=== PATIENT | female | born 1965 | race Caucasian/White ===

== ENCOUNTER → 2017-06-24 | Outpatient (CLI) | payer OTHER ==
--- NOTE | 2017-06-25 16:15 | BD ---
EXAMINATION TYPE: MG DEXA axial skeleton. DATE OF EXAM: 06/24/2017 COMPARISON: NONE CLINICAL HISTORY: 52-year-old female postmenopausal screening for osteoporosis Height: 5 FT 1 1/2 IN Weight: 238 FRAX RISK QUESTIONS: Alcohol (3 or more units per day): NO Family History (Parent hip fracture): NO Glucocorticoids (More than 3mos): NO (Ex: prednisone, prednisolone, methylprednisolone, dexamethasone, and hydrocortisone). History of Fracture in Adulthood: NO Secondary Osteoporosis: 1. Type 1 Diabetes: NO 2. Hyperthyroidism: NO 3. Menopause before 45: NO 4. Malnutrition: NO 5. Chronic liver disease: NO Rheumatoid Arthritis: NO Current Tobacco Use: NO RISK FACTORS HISTORY OF: Active: YES Postmenopausal woman: ABLASION AGE 46 MEDICATIONS: Additional Medications: NONE Additional History: CARPAL TUNNEL SURG BOTH WRISTS EXAM MEASUREMENTS: Bone mineral densitometry was performed using the [employer] inTouch System. Bone mineral density as measured about the Lumbar spine is: ----- L1-L4(G/cm2): 1.283 T Score Values are as follows: ----- L2: 0.8 ----- L3: 0.6 ----- L4: 1.2 ----- L1-L4: 0.9 BASELINE Bone mineral density about the R hip (g/cm2): 1.085 Bone mineral density about the L hip (g/cm2): 1.095 T Score values are as follows: -----R Neck: 0.3 -----L Neck: 0.4 -----R Total: 2.3 -----L Total: 2.4 BASELINE IMPRESSION: Normal (Values between +1 and -1 indicate normal bone mass). Consider repeating this study in 5 year s or sooner if there is some new clinical indication. NOTE: T-SCORE=SD OF THE YOUNG ADULT MEAN.
--- NOTE | 2017-06-26 09:58 | MM ---
Reason for exam: screening (asymptomatic). Last mammogram was performed 1 year and 3 months ago. History: Patient is postmenopausal. Family history of breast cancer in 2 paternal aunts. Took hormonal contraceptives for 3 years. Physical Findings: A clinical breast exam by your physician is recommended on an annual basis and results should be correlated with mammographic findings. MG Screening Mammo w CAD Bilateral CC and MLO view(s) were taken. Prior study comparison: March 13, 2016, bilateral MG screening mammo w CAD. December 01, 2014, bilateral MG screening mammo w CAD. There are scattered fibroglandular densities. No significant changes when compared with prior studies. ASSESSMENT: Negative, BI-RAD 1 RECOMMENDATION: Routine screening mammogram of both breasts in 1 year.
== END | disposition home or self-care (01) ==
LOC: RADMAMWWP 13:46
PROVIDERS: ATTEND Obstetrics & Gynecology
DX: Z12.31 Encounter for screening mammogram for malignant neoplasm of breast (principal); Z79.52 Long term (current) use of systemic steroids; Z13.820 Encounter for screening for osteoporosis
CPT/HCPCS: 77067; 77080

== ENCOUNTER → 2019-05-04 | Outpatient (CLI) | payer OTHER ==
--- NOTE | 2019-05-05 11:27 | MM ---
Reason for exam: screening (asymptomatic). Last mammogram was performed 1 year and 10 months ago. History: Patient is postmenopausal. Family history of breast cancer in 2 paternal aunts. Took hormonal contraceptives for 3 years. Physical Findings: A clinical breast exam by your physician is recommended on an annual basis and results should be correlated with mammographic findings. MG Screening Mammo w CAD Bilateral CC and MLO view(s) were taken. Prior study comparison: June 24, 2017, bilateral MG screening mammo w CAD. March 13, 2016, bilateral MG screening mammo w CAD. There are scattered fibroglandular densities. No suspicious abnormality. No significant changes when compared with prior studies. ASSESSMENT: Negative, BI-RAD 1 RECOMMENDATION: Routine screening mammogram of both breasts in 1 year.
== END | disposition home or self-care (01) ==
LOC: RADMAMWWP 11:02
PROVIDERS: ATTEND Obstetrics & Gynecology
DX: Z12.31 Encounter for screening mammogram for malignant neoplasm of breast (principal); N83.209 Unspecified ovarian cyst, unspecified side
CPT/HCPCS: 77067; 86304

== ENCOUNTER → 2020-08-29 | Outpatient (CLI) | payer OTHER ==
--- NOTE | 2020-08-29 15:03 | MM ---
Reason for exam: screening (asymptomatic). Last mammogram was performed 1 year and 4 months ago. History: Patient is postmenopausal. Family history of breast cancer in 2 paternal aunts. Took hormonal contraceptives for 3 years. Physical Findings: A clinical breast exam by your physician is recommended on an annual basis and results should be correlated with mammographic findings. MG Screening Mammo w CAD Bilateral CC and MLO view(s) were taken. Prior study comparison: May 04, 2019, bilateral MG screening mammo w CAD. June 24, 2017, bilateral MG screening mammo w CAD. There are scattered fibroglandular densities. There is chronic nodularity in the right breast. There is no discrete abnormality. ASSESSMENT: Benign, BI-RAD 2 RECOMMENDATION: Routine screening mammogram of both breasts in 1 year.
== END | disposition home or self-care (01) ==
LOC: RADMAMWWP 11:09
PROVIDERS: ATTEND Obstetrics & Gynecology
DX: Z12.31 Encounter for screening mammogram for malignant neoplasm of breast (principal); Z80.3 Family history of malignant neoplasm of breast; Z78.0 Asymptomatic menopausal state
CPT/HCPCS: 77067

== ENCOUNTER → 2021-09-17 | Outpatient (CLI) | payer OTHER ==
--- NOTE | 2021-09-18 00:52 | XR ---
EXAMINATION TYPE: XR knee limited LT DATE OF EXAM: 09/17/2021 COMPARISON: NONE INDICATION: Pressure behind knee, causing pain for 4 days. TECHNIQUE: 2 views of the left knee FINDINGS: Slightly sharp lateral tibial spine. Tiny osteophytosis of the lateral femoral condyle. Enthesophytos is at the patellar attachment of the patellar ligament. No other bony degenerative changes of the knee joint. No definite acute fracture line identified. Pos sible small knee joint effusion. IMPRESSION: Minimal degenerative changes as described above.
== END | disposition home or self-care (01) ==
LOC: RADXRYALE 10:29
PROVIDERS: ATTEND Internal Medicine
DX: M17.12 Unilateral primary osteoarthritis, left knee (principal); M71.22 Synovial cyst of popliteal space [Baker], left knee

== ENCOUNTER → 2021-12-04 | Outpatient (CLI) | payer OTHER ==
[2021-12-04 16:15] LABS: Basophils # (A) 0.04 X 10*3/uL (0.00-0.10); Basophils % (A) 0.5 %; Eosinophils # (A) 0.11 X 10*3/uL (0.04-0.35); Eosinophils % (A) 1.5 %; HCT 47.3 % (37.2-46.3); HGB 15.2 g/dL (12.0-15.0); Immature Grans, Automated 0.1 %; Lymphocytes # (A) 2.95 X 10*3/uL (0.90-5.00); Lymphocytes % (A) 39.1 %; MCH 29.7 pg (27.0-32.0); MCHC 32.1 g/dL (32.0-37.0); MCV 92.4 fL (80.0-97.0); Mean Platelet Volume 11.1 fL (9.5-12.2); Monocytes # (A) 0.58 X 10*3/uL (0.20-1.00); Monocytes % (A) 7.7 %; NRBC Per 100 WBC 0 /100 WBCS (0.0-0.0); Neutrophils # (A) 3.86 X 10*3/uL (1.80-7.70); Neutrophils % (A) 51.1 %; Platelet Count 314 X 10*3/uL (140-440); RBC 5.12 X 10*6/uL (4.10-5.20); WBC 7.55 X 10*3/uL (4.50-10.00)
[2021-12-04 16:16] LABS: Carbon Dioxide 26.6 mmol/L (20.0-27.5); Potassium 5.1 mmol/L (3.5-5.5)
== END | disposition home or self-care (01) ==
LOC: LABWHC1 09:56
PROVIDERS: ATTEND Orthopaedic Surgery
DX: Z01.812 Encounter for preprocedural laboratory examination (principal); M23.92 Unspecified internal derangement of left knee
CPT/HCPCS: 36415; 80051; 85025; 93005

== ENCOUNTER 2021-12-19 15:00 | Day surgery (SDC) | payer OTHER ==
--- NOTE | 2021-12-19 05:04 | HP ---
HISTORY AND PHYSICAL DATE OF SURGERY: 12/19/2021. Kait Meyer is a 56-year-old patient seen with progressive left knee pain. We discussed options regarding treatment. She elected to proceed with left knee arthroscopy. Consent was obtained. PAST MEDICAL HISTORY: Hypertension, ort-tmqqiae-svihipywm diabetes. PAST SURGICAL HISTORY: section, carpal tunnel surgery, cholecystectomy, foot surgery. DAILY MEDICATIONS: 1. Lisinopril. 2. Metformin. 3. Vitamins. 4. Ibuprofen. ALLERGIES: Sulfa. SOCIAL HISTORY: She denies tobacco use. PHYSICAL EVALUATION OF THE LEFT KNEE: Range of motion is 0 to 130. Mild effusion. Tenderness along the medial and lateral joint lines. Positive medial Shanae's. Positive lateral Shanae's. Ligaments are stable. Hip rotation is without pain. Distal neurovascular exam is intact. RADIOGRAPHS: Radiographs of the left knee revealed mild osteoarthritis. MRI of left knee revealed an abnormal signal in the medial meniscus, a Guerra cyst and effusion, osteoarthritic changes. IMPRESSION: 1. Internal derangement of left knee with medial meniscal tear. 2. Hypertension. 3. Ktj-ysgtulk-slbwsfmmy diabetes. PLAN: Left knee arthroscopy with partial medial meniscectomy and debridement. MMODL / IJN: [id number] /
[~2021-12-19 15:00] MED LIST: DEXAMETHASONE SOD PHOSPHATE 4 MG/ML 1 ML VIAL IV ONE; LACTATED RINGERS 1,000 ML IV SCH; LIDOCAINE 1% (10MG/ML) FOR IV START INTRADERMA PRN; METOCLOPRAMIDE 5 MG/ML 2 ML VIAL IVP PRN; ONDANSETRON 4 MG/2 ML VIAL IVP ONE
[2021-12-19 16:36] VITALS: RESP 16; TEMP 96.8
[2021-12-19 16:48] LABS: Glucose,Whole Blood 99 mg/dL (70-110)
[2021-12-19] MEDS ORDERED: fentaNYL (PF) 50 MCG/ML 2 ML AMP ONE (17:20)
[2021-12-19] MEDS ORDERED: LIDOCAINE 2% INJ 20 MG/ML (2 ML VIAL) ONE (17:20)
[2021-12-19] MEDS ORDERED: KETOROLAC 30 MG/ML 1 ML VIAL ONE (17:20)
[2021-12-19] MEDS ORDERED: MIDAZOLAM 2 MG/2 ML VIAL ONE (17:20)
[2021-12-19] MEDS ORDERED: PROPOFOL 10 MG/ML 20 ML VIAL IV ONE (17:20)
[2021-12-19] MEDS ORDERED: BUPIVACAINE (PF) 0.25% 30 ML VIAL SQ ONE ×2 (17:49)
[2021-12-19] MEDS: HYDROmorphone 0.5 MG/0.5 ML SYRINGE IVP PRN ×4 (18:07→18:45)
--- NOTE | 2021-12-19 18:07 | P.OP ---
Date of Procedure: 12/19/21 Preoperative Diagnosis: Internal derangement left knee Postoperative Diagnosis: 1. Tear medial and lateral meniscus left knee 2. Grade 4 chondromalacia medial femoral condyle left knee 3. Grade 4 chondromalacia lateral tibial plateau left knee 4. Reactive synovitis medial, lateral and suprapatellar compartments left knee Procedure(s) Performed: 1. Arthroscopic partial medial and lateral meniscectomy left knee 2. Arthroscopic microfracture medial femoral condyle left knee 3. Arthroscopic microfracture lateral tibial plateau left knee 4. Arthroscopic partial synovectomy medial, lateral and suprapatellar compartments left knee Anesthesia: FLORENCEA, local Surgeon: Darshan Ingram Estimated Blood Loss (ml): 10 Pathology: none sent Condition: stable Disposition: PACU Indications for Procedure: 56-year-old patient seen with progressive left knee pain. After treatment options were discussed, she elected to proceed with arthroscopy. Operative Findings: See description of procedure Description of Procedure: Patient was taken to the operative suite. Patient underwent a general anesthetic by the department of anesthesia. Patient was given preoperative antibiotics. The left lower extremity was placed in a well-padded arthroscopic leg little. The left leg was prepped and draped in the normal sterile orthopedic fashion. A lateral parapatellar and suprapatellar incision was made. Trochars were inserted. Arthroscopy was initiated. Suprapatellar pouch revealed diffuse thick reactive synovitis. The patellofemoral joint appeared to articulate congruently. There was grade 2 chondromalacia of the patella with some small osteochondral flap tears present centrally. The scope was guided into the medial gutter. No loose bodies or plica were identified. The scope was then guided into the medial compartment. A medial parapatellar incision was made. Trocar inserted followed by probe. There was a radial tear posterior horn medial meniscus. There were grade 3/4 chondral moist changes the medial femoral condyle with some fairly large osteochondral flap tears present. There was some thick reactive synovitis anteriorly. I performed a partial medial meniscectomy. I performed a chondroplasty of the medial femoral condyle getting down to stable osteochondral tissue. I performed a partial synovectomy decompressing the thick reactive synovitis. I did note an area of grade 4 chondromalacia medial femoral condyle with some exposed bone. I introduced a microfracture awl into the medial compartment. I performed a microfracture of the medial femoral condyle penetrating the bone with resultant bleeding at the microfracture site. The residual meniscus was probed and was found to be stable. The residual osteochondral surface was stable. There was good decompression of the synovitis. Scope and probe were then guided into the intercondylar notch. Cruciates were identified, probed and found to be stable. The scope and probe were then guided into lateral compartment. There was a radial tear involving the posterior horn lateral meniscus slightly into the midbody area. There were grade 3/4 chondromalacia changes of the tibial plateau with some significant osteochondral flap tears present. There was thick reactive synovitis anteriorly. I performed a partial lateral meniscectomy. I performed a chondroplasty of the lateral tibial plateau down to stable osteochondral tissue. I performed a partial synovectomy. After chondroplasty lateral tibial plateau and noted a 2 cm area of exposed bone a central area tibial plateau. I introduced a microfracture awl into lateral compartment. I performed a microfracture to the lateral tibial plateau exposed bone area penetrating the bone with resultant bleeding at the microfracture site. The residual meniscus was stable. The residual osteochondral surface was stable. There was good decompression synovitis. The scope was in guided back into the suprapatellar compartment. I introduced a motorized shaver into the super patellar compartment. I debrided some piecemeal fragments of meniscus I encountered. I performed a chondroplasty of the patella getting down to stable osteochondral tissue. The residual osteochondral surface of patella. Stable. I performed a partial synovectomy decompressing the reactive synovitis within the suprapatellar compartment. The shaver was removed. There appeared to be good decompression synovitis. I took one more look on the entire knee, no residual debris. Instruments were now removed from the joint. The joint was infiltrated with .25% Marcaine. Steri-Strips were applied to the portal sites. Sterile dressings were applied. The patient was placed into a LUCHO hose. No tourniquet was utilized. The patient was awakened, transferred to a bed and taken to recovery stable satisfactory condition.
[2021-12-19] MEDS ORDERED: LACTATED RINGERS 1,000 ML IV ONE (18:37)
[2021-12-19] MEDS ORDERED: MEPERIDINE 50 MG/ML SYRINGE IVP ONE (18:53)
[2021-12-19] MEDS ORDERED: HYDROcodone/APAP 5-325MG 1 EACH TAB PO ONE (19:30)
[2021-12-19] MEDS ORDERED: HYDROcodone/APAP 5-325MG 1 EACH TAB ONE (19:31)
[2021-12-19 19:35] VITALS: BP 95/63; PULSE 90
== END 2021-12-19 20:11 | disposition home or self-care (01) ==
LOC: OR 15:00
PROVIDERS: ATTEND Orthopaedic Surgery
DX: M23.201 Derangement of unspecified lateral meniscus due to old tear or injury, left knee (principal); M23.204 Derangement of unspecified medial meniscus due to old tear or injury, left knee; M94.262 Chondromalacia, left knee; M65.862 Other synovitis and tenosynovitis, left lower leg; I10 Essential (primary) hypertension; E11.9 Type 2 diabetes mellitus without complications; J44.9 Chronic obstructive pulmonary disease, unspecified; Z90.49 Acquired absence of other specified parts of digestive tract; Z98.891 History of uterine scar from previous surgery; Z98.890 Other specified postprocedural states; Z79.84 Long term (current) use of oral hypoglycemic drugs; Z79.1 Long term (current) use of non-steroidal anti-inflammatories (NSAID); Z79.899 Other long term (current) drug therapy; Z88.2 Allergy status to sulfonamides
CPT/HCPCS: 29880; 29879; J2250; J1100; J2175; J2405; J3010; J1885; J2704; J1170; J2001

== ENCOUNTER → 2022-12-10 | Outpatient (CLI) | payer OTHER ==
--- NOTE | 2022-12-10 19:15 | BD ---
EXAMINATION TYPE: Axial Bone Density DATE OF EXAM: 12/10/2022 CLINICAL HISTORY: 57 years old Female. ICD-10 CODE: N951 POST KLAUDIA SYMPT Height: 5 ft 2 in Weight: 244 FRAX RISK QUESTIONS: Alcohol (3 or more units per day): no Family History (Parent hip fracture): no Glucocorticoids (More than 3mos): no (Ex: prednisone, prednisolone, methylprednisolone, dexamethasone, and hydrocortisone). History of Fracture in Adulthood: no Secondary Osteoporosis: 1. Type 1 Diabetes: type 2 2. Hyperthyroidism: no 3. Menopause before 45: no 4. Malnutrition: no 5. Chronic liver disease: no Rheumatoid Arthritis: no Current Tobacco Use: no RISK FACTORS HISTORY OF: Surgery to Spine/Hip(right/left)/Wrist (right/left): no Family History of Osteoporosis: no Active: yes Diet low in dairy products/other sources of calcium: no Postmenopausal woman: yes Take estrogen and/or progesterone medications: no Lost more than 2 inches in height since high school: no Frequent falls: no Poor Health: good Hyperparathyroidism: no Adrenal Insufficiency: no MEDICATIONS: Additional Medications: metformin, lisinopril, vit d , Additional History: carpal tunnel vida 2003 EXAM MEASUREMENTS: Bone mineral densitometry was performed using the [employer] System. Bone mineral density as measured about the Lumbar spine is: ----- L1-L4(G/cm2): 1.181 T Score Values are as follows: ----- L1: -0.6 ----- L2: 0.2 ----- L3: -0.6 ----- L4: 0.6 ----- L1-L4: 0.0 Z Score Values are as follows: ----- L1: -0.8 ----- L2: 0.0 ----- L3: -0.8 ----- L4: 0.4 ----- L1-L4: -0.2 Bone mineral density has: decreased -8.0 % since study of: 2018 Bone mineral density about the R hip (g/cm2): 1.025 Bone mineral density about the L hip (g/cm2): 1.048 T Score values are as follows: -----R Neck: -0.1 -----L Neck: 0.1 -----R Total: 1.6 -----L Total: 1.5 Z Score values are as follows: -----R Neck: 0.2 -----L Neck: 0.4 -----R Total: 1.5 -----L Total: 1.4 Bone mineral density has: decreased -7.4 % since study of: 2018 FRAX%s: The graph provided illustrates a 4.7 % chance for a major osteoporotic fx and a 0.1 % chance for the hips probability for fx in 10 years time. IMPRESSION: Normal (Values between +1 and -1 indicate normal bone mass). Consider repeating this study in 5 year s or sooner if there is some new clinical indication. NOTE: T-SCORE=SD OF THE YOUNG ADULT MEAN.
--- NOTE | 2022-12-11 10:33 | MM ---
Reason for Exam: Screening (asymptomatic). Last mammogram was performed 1 year(s) and 1 month(s) ago. Patient History: Menarche at age 12. First Full-Term at age 19. Postmenopausal. Hormonal Contraceptives for 3 years until age 32. Paternal aunt had breast cancer, age 40. Paternal aunt had breast cancer, age 40. Maternal grandmother had ovarian cancer, age 70. Paternal grandmother had ovarian cancer at or over age 50. Risk Values: Daisha 5 year model risk: 1.0%. NCI Lifetime model risk: 6.4%. Prior Study Comparison: 05/04/2019 Bilateral Screening Mammogram, [facility]. 08/29/2020 Bilateral Screening Mammogram, [facility]. 11/14/2021 Bilateral MG screening mammo w CAD, [facility]. Tissue Density: There are scattered fibroglandular densities. Findings: Analyzed By CAD. There is no suspicious group of microcalcifications or new suspicious mass in either breast. Chronic nodularity right breast. Benign calcifications. Overall Assessment: Benign, BI-RAD 2 Management: Screening Mammogram of both breasts in 1 year. . Patient should continue monthly self-breast exams. A clinical breast exam by your physician is recommended on an annual basis. This exam should not preclude additional follow-up of suspicious palpable abnormalities. Note on Daisha scores and lifetime risk: 1. A Daisha score greater than 3% is considered moderate risk. If this is the case, consider specialist referral to assess eligibility for a risk reducing agent. 2. If overall lifetime risk for the development of breast cancer is 20% or higher, the patient may qualify for future screening with alternating mammogram and breast MRI. Electronically signed and approved by: Saud Joel M.D. Radiologis
== END | disposition home or self-care (01) ==
LOC: RADBDWWP 12:30
PROVIDERS: ATTEND Obstetrics & Gynecology
DX: Z12.31 Encounter for screening mammogram for malignant neoplasm of breast (principal); N83.209 Unspecified ovarian cyst, unspecified side; Z78.0 Asymptomatic menopausal state; Z80.3 Family history of malignant neoplasm of breast; Z80.41 Family history of malignant neoplasm of ovary
CPT/HCPCS: 77067; 77080; 86304

== ENCOUNTER → 2024-01-07 | Outpatient (CLI) | payer OTHER ==
--- NOTE | 2024-01-07 11:00 | MM ---
Reason for Exam: Screening (asymptomatic). Last mammogram was performed 1 year(s) and 1 month(s) ago. Patient History: Menarche at age 12. First Full-Term at age 19. Postmenopausal. Hormonal Contraceptives for 3 years until age 32. Paternal aunt had breast cancer, age 40. Paternal aunt had breast cancer, age 40. Maternal grandmother had ovarian cancer, age 70. Paternal grandmother had ovarian cancer at or over age 50. Risk Values: Daisha 5 year model risk: 1.0%. NCI Lifetime model risk: 6.3%. Prior Study Comparison: 03/13/2016 Bilateral Screening Mammogram, [facility]. 06/24/2017 Bilateral Screening Mammogram, [facility]. 05/04/2019 Bilateral Screening Mammogram, [facility]. 08/29/2020 Bilateral Screening Mammogram, [facility]. 11/14/2021 Bilateral MG screening mammo w CAD, [facility]. 12/10/2022 Bilateral MG screening mammo w CAD, [facility]. Tissue Density: There are scattered areas of fibroglandular density. Findings: Analyzed By CAD. There is no suspicious group of microcalcifications or new suspicious mass in either breast. Stable chronic nodularity right breast relative to multiple prior exams. Benign appearing calcifications. Overall Assessment: Benign, BI-RAD 2 Management: Screening Mammogram of both breasts in 1 year. . Patient should continue monthly self-breast exams. A clinical breast exam by your physician is recommended on an annual basis. This exam should not preclude additional follow-up of suspicious palpable abnormalities. Note on Daisha scores and lifetime risk: 1. A Daisha score greater than 3% is considered moderate risk. If this is the case, consider specialist referral to assess eligibility for a risk reducing agent. 2. If overall lifetime risk for the development of breast cancer is 20% or higher, the patient may qualify for future screening with alternating mammogram and breast MRI. [facility], , 01/07/2024 10:56 AM. Electronically signed and approved by: Saud Joel M.D. Radiologis
== END ==
LOC: RADMAMWWP 10:17
PROVIDERS: ATTEND Internal Medicine
CPT/HCPCS: 77067

== ENCOUNTER → 2024-01-14 | Outpatient (CLI) | payer OTHER ==
--- NOTE | 2024-01-14 15:50 | US ---
EXAMINATION TYPE: US pelvis complete transvag DATE OF EXAM: 01/14/2024 COMPARISON: NONE CLINICAL INDICATION: Female, 58 years old with history of R10.2 PELVIC PAIN; Hx ablation 15 + years a go, pain right side, hx 2 C sections. . TECHNIQUE: Transvaginal (TV) and Transabdominal (TA) . Transabdominal grayscale, color Doppler and spectral Doppler sonographic images of the pelvis were acquired. Transvaginal sonographic images wer e medically necessary to better assess the following anatomy: ovaries, endometrium FINDINGS: Date of LMP: 15+ years ago EXAM MEASUREMENTS: Uterus: 6.2 x 4.1 x 2.9 cm Endometrial Stripe: Unable to visualize Right Ovary: Not seen Left Ovary: Not seen 1. Uterus: Anteverted Very heterogeneous*. Limited. Hyperechoic area seen upper uterus= 0.2 x 0.4 x 0.2 cm. Subcentimeter anechoic areas seen in cervix. 2. Endometrium: Unable to visualize 3. Right Ovary: Not seen 4. Left Ovary: Not seen 5. Bilateral Adnexa: Appear wnl 6. Posterior cul-de-sac: Appears wnl IMPRESSION: 1. Uterus is diffusely heterogeneous which is a nonspecific finding. Can be seen with adenomyosis. Co nsider follow-up MRI. 2. There are cysts within the cervix. 3. Hyperechoic area measuring 4 mm with a in the upper uterus likely related to a calcification. 4. Note is made that the endometrium and ovaries were not seen by ultrasound. As noted above consider follow-up MRI. [facility], , 01/14/2024 3:48 PM
== END | disposition home or self-care (01) ==
LOC: RADUSWWP 14:32
PROVIDERS: ATTEND Internal Medicine
CPT/HCPCS: 76830; 76856

== ENCOUNTER → 2024-03-12 | Outpatient (CLI) | payer OTHER ==
--- NOTE | 2024-03-13 11:22 | MR ---
EXAMINATION TYPE: MR pelvis wo/w con DATE OF EXAM: 03/12/2024 10:38 AM COMPARISON: Ultrasound 03/15/2024. CLINICAL INDICATION: Female, 58 years old with history of R93.89 thickened endometrium; PHH, pelvic p ain, thickened endometrium TECHNIQUE: Triplane multisequence imaging was performed of the pelvis. IV Contrast: 8 mL Gadobutrol FINDINGS: Reproductive: Vagina: Unremarkable. Uterus: The uterus is anteverted in position. Uterus measures 5.5 x 2.5 x 4.2 cm. cm. Evaluation of t he uterus due to its diffuse low signal junctional zone is poorly visualized. The endometrium where v isualized is appears within normal limits. Multiple nabothian cysts are seen in the lower uterine seg ment. Evaluation the uterus is somewhat limited due to its diffuse low signal. The endometrium does appear to be within normal limits on T2-weighted imaging no abnormal postcontrast enhancement. Ovaries: The ovaries are atrophic bilaterally. No follicles definitively visualized. Kidneys: Peripelvic renal cysts on the left. No hydronephrosis. The gallbladder appears surgically absent. Bladder: Unremarkable. Bowel: Unremarkable as visualized. Peritoneum: No free fluid or adenopathy. Lymph nodes: No evidence of adenopathy. Vasculature: Unremarkable. Musculoskeletal: Bone marrow signal is within normal signal intensity. Abdominal wall/soft tissues: Unremarkable. IMPRESSION: 1. Limited evaluation due to diffuse low signal the uterus the endometrium where visualized is withi n normal limits. Junctional zone is poorly visualized possibly suggesting adenomyosis. No suspicious masses identified. No lymphadenopathy identified. Multiple left peripelvic renal cysts in the left kidney. [facility], , 03/13/2024 11:19 AM
== END | disposition home or self-care (01) ==
LOC: RADMRIMAIN 09:46
PROVIDERS: ATTEND Internal Medicine
DX: N28.1 Cyst of kidney, acquired (principal); R93.89 Abnormal findings on diagnostic imaging of other specified body structures
CPT/HCPCS: 72197; A9585